=== PATIENT | female | born 1935 | race African-American/Black ===

== ENCOUNTER 2017-02-05 12:27 | Inpatient (IN) | payer OTHER ==
[~2017-02-05] VITALS: Ht 157.5 cm; Wt 43.5 kg
[~2017-02-05 12:27] MED LIST: ABATINEX680 MG PO; ALENDRONATE SOD70 MG; AMARYL; AMLODIPINE BESYL5 MG PO; ARICEPT10 MG PO; ARICEPT5 MG PO; CEFUROXIME250 MG PO; CLONAZEPAM0.5 MG; COLESTID1 GM; COREG CR10 MG PO; COUMADIN4 MG PO; Coreg 3.125MG TABLET PO; DIOVAN40 MG PO; GLIMEPIRIDE1 MG; INTESTINEX680 MG; LEVAQUIN500 MG PO; LOSARTAN POTASS50 MG PO; LOTREL 10-20 MG1 CAP; NEURONTIN300 MG; NEURONTIN300 MG PO; NEURONTIN600 MG PO; Neurin-Sl Tablet Sl SL; PLAVIX75 MG; PRILOSEC OTC20 MG; PRILOSEC10 MG PO; QUETIAPINE FUMA25 MG PO
== END 2017-02-24 14:15 | disposition expired | DRG 177 ==
LOC: ER 12:27 → MEDI 02-06 10:44
PROC: 4A033R1 Measurement of Arterial Saturation, Peripheral, Percutaneous Approach (ICD-10-PCS; principal; 2017-02-06)
PROC: 3E0F7GC Introduction of Other Therapeutic Substance into Respiratory Tract, Via Natural or Artificial Opening (ICD-10-PCS; 2017-02-06)
PROC: 4A00X4Z Measurement of Central Nervous Electrical Activity, External Approach (ICD-10-PCS; 2017-02-08)
PROC: 02HV33Z Insertion of Infusion Device into Superior Vena Cava, Percutaneous Approach (ICD-10-PCS; 2017-02-13)
PROC: 3E0436Z Introduction of Nutritional Substance into Central Vein, Percutaneous Approach (ICD-10-PCS; 2017-02-14)
PROC: B246ZZZ Ultrasonography of Right and Left Heart (ICD-10-PCS; 2017-02-15)
PROC: 5A09557 Assistance with Respiratory Ventilation, Greater than 96 Consecutive Hours, Continuous Positive Airway Pressure (ICD-10-PCS; 2017-02-16)
PROC: 4A12X4Z Monitoring of Cardiac Electrical Activity, External Approach (ICD-10-PCS; 2017-02-16)
DX: J69.0 Pneumonitis due to inhalation of food and vomit (principal); J96.01 Acute respiratory failure with hypoxia; I50.33 Acute on chronic diastolic (congestive) heart failure; L89.153 Pressure ulcer of sacral region, stage 3; F02.81 Dementia in other diseases classified elsewhere, unspecified severity, with behavioral disturbance; N39.0 Urinary tract infection, site not specified; K56.41 Fecal impaction; G30.1 Alzheimer's disease with late onset; E86.0 Dehydration; R13.19 Other dysphagia; Z74.01 Bed confinement status; B96.1 Klebsiella pneumoniae [K. pneumoniae] as the cause of diseases classified elsewhere; Z66 Do not resuscitate; I11.0 Hypertensive heart disease with heart failure; Z86.73 Personal history of transient ischemic attack (TIA), and cerebral infarction without residual deficits